=== PATIENT | female | born 1940 | race Hispanic/Latino ===

== ENCOUNTER → 2017-11-29 | Outpatient (CLI) | payer OTHER, MEDICARE | END | disposition home or self-care (01) | LOC: RAH 12:40 | PROVIDERS: ATTEND Family Medicine | DX: Z12.31 Encounter for screening mammogram for malignant neoplasm of breast (principal) | CPT/HCPCS: 77067 ==

== ENCOUNTER → 2018-09-08 | Outpatient (CLI) | payer OTHER, MEDICARE ==
[~2018-09-08] MED LIST: REGADENOSON 0.4 MG/5 ML PF SYG IVP SCH
== END | disposition home or self-care (01) ==
LOC: SHCH 08:11
PROVIDERS: ATTEND Internal Medicine Cardiovascular Disease
DX: R07.9 Chest pain, unspecified (principal)
CPT/HCPCS: 78452; 93017; 96374; A9500 ×2

== ENCOUNTER → 2018-09-15 | Outpatient (CLI) | payer OTHER, MEDICARE | END | disposition home or self-care (01) | LOC: SHCH 09:20 | PROVIDERS: ATTEND Internal Medicine Cardiovascular Disease | DX: R07.9 Chest pain, unspecified (principal) | CPT/HCPCS: 93306 ==

== ENCOUNTER 2020-12-28 11:30 | Observation (INO) | payer OTHER, MEDICARE ==
[~2020-12-28] VITALS: Ht 162.6 cm; Wt 62.8 kg
[2020-12-28 11:56] LABS: BASOPHILS % (AUTO) 0.6 % (0.0-5.0); EOSINOPHILS % (AUTO) 1.1 % (0.0-8.0); HEMATOCRIT 35.6 % (36-48); LYMPHOCYTES % (AUTO) 24.7 % (21.0-51.0); MEAN CORPUSCULAR HEMOGLOBIN 30.5 pg (27.0-33.0); MEAN CORPUSCULAR HGB CONC 33.7 g/dL (32.0-36.0); MEAN CORPUSCULAR VOLUME 90.6 fL (79-99); NEUTROPHILS % (AUTO) 64.4 % (40.0-77.0); PLATELET COUNT (AUTO) 185 K/uL (130-400); RED BLOOD CELL COUNT(AUTO) 3.93 MIL/uL (4.00-5.50); RED CELL DISTRIBUTION WIDTH 13.6 % (11.0-15.5); WHITE BLOOD COUNT (AUTO) 5.2 K/uL (4.8-10.8)
[2020-12-28 12:04] LABS: CREATININE 1.7 mg/dL (0.5-1.5); POTASSIUM 4.1 mmol/L (3.5-5.1)
[2020-12-28 12:06] LABS: INR 1.04 (0.85-1.15); PROTHROMBIN TIME 11.3 SEC (9.6-11.6)
[2020-12-28 12:07] LABS: PARTIAL THROMBOPLASTIN TIME 21.1 SEC (26.3-35.5)
[2020-12-28 12:09] LABS: ALBUMIN 3.7 g/dL (3.5-5.0); BILIRUBIN,TOTAL 0.6 mg/dL (0.2-1.0); TOTAL PROTEIN, SERUM 7.5 g/dL (6.0-8.3)
[2020-12-28] MEDS ORDERED: ASPIRIN 325 MG TABLET ONE (13:07)
[2020-12-28 13:34] LABS: APPEARANCE,URINE Cloudy (CLEAR); BILIRUBIN,URINE Negative (NEGATIVE); COLOR,URINE Yellow (YELLOW); GLUCOSE, URINE (UA) Negative (NEGATIVE); KETONES,URINE Negative (NEGATIVE); LEUKOCYTE ESTERASE ,URINE Moderate (NEGATIVE); NITRATE,URINE Negative (NEGATIVE); OCCULT BLOOD,URINE Negative (NEGATIVE); PROTEIN,URINE Negative (NEGATIVE); UROBILINOGEN,URINE 0.2 mg/dL (0.2-1.0)
[2020-12-28 13:43] LABS: BACTERIA,URINE Moderate /HPF (None Seen); SQUAMOUS EPITHELIAL CELL,UR Many /HPF (0-2)
[2020-12-28] MEDS: SODIUM CHLORIDE 0.9% 1000ML 1,000 ML IV SCH (17:00)
[2020-12-28] MEDS ORDERED: ACETAMINOPHEN 650 MG SUPPOSITORY RC PRN (17:00)
[2020-12-28] MEDS ORDERED: ONDANSETRON HCL 4 MG/2 ML VIAL IVP PRN (17:00)
[2020-12-28] MEDS ORDERED: ACETAMINOPHEN 325 MG TAB PO PRN (17:00)
[2020-12-28] MEDS ORDERED: CLONIDINE HCL 0.1 MG TABLET PO PRN (17:00)
[2020-12-28] MEDS ORDERED: METHYLPREDNISOLONE SOD SUCC 125MG/2ML VIAL IVP ONE (17:00)
[2020-12-28] MEDS ORDERED: MORPHINE SULFATE 2 MG/ML 1ML SYG IVP PRN (17:00)
[2020-12-28] MEDS ORDERED: METHYLPREDNISOLONE SOD SUCC 125MG/2ML VIAL ONE (17:27)
[2020-12-28 18:21] LABS: CREATINE KINASE, TOTAL 149 U/L (21-232); MYOGLOBIN 97 ng/mL (10-92); TROPONIN I < 0.04 ng/mL (0.00-0.06)
[2020-12-28] MEDS ORDERED: CEFTRIAXONE SODIUM 1 GM ONE (20:24)
[2020-12-28] MEDS ORDERED: INSULIN HUMULIN R 100 UNIT/ML 3ML ONE (20:25)
[2020-12-28] MEDS: INSULIN HUMULIN R 100 UNIT/ML 3ML SQ SCH (21:00)
[2020-12-28] MEDS ORDERED: ENOXAPARIN SODIUM 1 MG/KG SQ SCH (21:00)
[2020-12-28] MEDS ORDERED: ENOXAPARIN SODIUM 60 MG/0.6 ML SQ SCH ×2 (21:00)
[2020-12-28 21:55] VITALS: BP 154/72
[2020-12-28 23:26] VITALS: BP 142/76
[2020-12-28 23:28] LABS: CREATINE KINASE, TOTAL 125 U/L (21-232); MYOGLOBIN 71 ng/mL (10-92); TROPONIN I < 0.04 ng/mL (0.00-0.06)
[2020-12-29 04:00] VITALS: BP 159/79
[2020-12-29 05:45] LABS: BASOPHILS % (AUTO) 0.1 % (0.0-5.0); HEMATOCRIT 35.1 % (36-48); LYMPHOCYTES % (AUTO) 11.1 % (21.0-51.0); MEAN CORPUSCULAR HEMOGLOBIN 29.4 pg (27.0-33.0); MEAN CORPUSCULAR HGB CONC 32.2 g/dL (32.0-36.0); MEAN CORPUSCULAR VOLUME 91.2 fL (79-99); NEUTROPHILS % (AUTO) 87.5 % (40.0-77.0); PLATELET COUNT (AUTO) 195 K/uL (130-400); RED BLOOD CELL COUNT(AUTO) 3.85 MIL/uL (4.00-5.50); RED CELL DISTRIBUTION WIDTH 13.6 % (11.0-15.5); WHITE BLOOD COUNT (AUTO) 6.8 K/uL (4.8-10.8)
[2020-12-29 06:10] LABS: CREATININE 1.6 mg/dL (0.5-1.5); POTASSIUM 4.6 mmol/L (3.5-5.1)
[2020-12-29] MEDS: SODIUM CHLORIDE 0.9% 1000ML 1,000 ML IV SCH (06:18)
[2020-12-29] MEDS: INSULIN HUMULIN R 100 UNIT/ML 3ML SQ SCH ×2 (06:22→12:31)
[2020-12-29 08:00] VITALS: BP 151/73
[2020-12-29] MEDS ORDERED: CEFTRIAXONE SODIUM 1 GM IVP SCH (09:00)
[2020-12-29] MEDS ORDERED: POLYETHYLENE GLYCOL 3350 17 GM POWD.PACK PO SCH (09:00)
[2020-12-29] MEDS ORDERED: PANTOPRAZOLE SODIUM 40 MG TABLET.DR PO SCH (09:00)
[2020-12-29] MEDS ORDERED: ASPIRIN 81MG TAB.CHEW PO SCH (09:00)
[2020-12-29 12:00] VITALS: BP 161/76
[2020-12-29] MEDS ORDERED: CLON0.1T PO (15:22)
[2020-12-29] MEDS ORDERED: ASPI-1197 PO (15:39)
[2020-12-29] MEDS ORDERED: INSU100I24 SQ (15:39)
[2020-12-29] MEDS ORDERED: PANT40TA54 PO (15:39)
[2020-12-29] MEDS ORDERED: PRAV40TA3 PO (15:39)
[2020-12-29] MEDS ORDERED: LOSA100T58 PO (15:39)
[2020-12-29] MEDS ORDERED: AMOX-426 PO (23:57)
== END 2020-12-29 18:05 | disposition home or self-care (01) ==
LOC: EDH 11:30 → EDHIP 16:53 → 3AH 21:39
PROVIDERS: ADMIT Internal Medicine Critical Care Medicine; ATTEND Internal Medicine Critical Care Medicine
DX: R07.89 Other chest pain (principal); N39.0 Urinary tract infection, site not specified; N17.9 Acute kidney failure, unspecified; I35.0 Nonrheumatic aortic (valve) stenosis; R01.1 Cardiac murmur, unspecified; I10 Essential (primary) hypertension; M19.90 Unspecified osteoarthritis, unspecified site; E11.9 Type 2 diabetes mellitus without complications; E78.5 Hyperlipidemia, unspecified; Z79.4 Long term (current) use of insulin; Z79.82 Long term (current) use of aspirin; Z79.899 Other long term (current) drug therapy
CPT/HCPCS: 36415 ×2; 71045; 80048; 80053; 81001; 82550 ×3; 82948 ×4; 83690; 83874 ×2; 84484 ×4; 85025 ×2; 85610; 85730; 87088; 93005; 93306; 93356; 96361; 96372 ×2; 96374; 99285; A4600; G0378 ×24; J0696 ×2; J1650; J1815 ×3; J2930; J7030

== ENCOUNTER → 2021-02-11 | Outpatient (CLI) | payer OTHER, MEDICARE ==
[~2021-02-11] MED LIST changes: +AMOX-426 PO; +ASPI-1197 PO; +CLON0.1T PO; +INSU100I24 SQ; +LOSA100T58 PO; +PANT40TA54 PO; +PRAV40TA3 PO; -REGADENOSON 0.4 MG/5 ML PF SYG IVP SCH
== END | disposition home or self-care (01) ==
LOC: SHCH 09:22
PROVIDERS: ATTEND Internal Medicine Cardiovascular Disease
DX: R07.9 Chest pain, unspecified (principal)
CPT/HCPCS: 93306; 93356

== ENCOUNTER → 2021-02-27 | Outpatient (CLI) | payer OTHER, MEDICARE ==
[~2021-02-27] VITALS: Ht 160 cm; Wt 62.1 kg
[~2021-02-27] MED LIST changes: +REGADENOSON 0.4 MG/5 ML PF SYG IVP SCH
== END | disposition home or self-care (01) ==
LOC: SHCH 08:59
PROVIDERS: ATTEND Internal Medicine Cardiovascular Disease
DX: R07.9 Chest pain, unspecified (principal)
CPT/HCPCS: 78452; 93017; 96374; A9500 ×2

== ENCOUNTER → 2023-04-14 | Outpatient (CLI) | payer OTHER, MEDICARE ==
[~2023-04-14] MED LIST changes: -AMOX-426 PO; +CHOL200013 PO; +CYAN-52 PO; +FAMO40TA7 PO; +GLIP2.5T2 PO; -LOSA100T58 PO; +LOSA100T59 PO; +MULT12TA PO; -REGADENOSON 0.4 MG/5 ML PF SYG IVP SCH
== END | disposition home or self-care (01) ==
LOC: SHCH 13:20
PROVIDERS: ATTEND Internal Medicine Cardiovascular Disease
DX: I87.2 Venous insufficiency (chronic) (peripheral) (principal); I73.9 Peripheral vascular disease, unspecified
CPT/HCPCS: 93925; 93970

== ENCOUNTER 2024-12-31 16:54 | Observation (INO) | payer OTHER, MEDICARE ==
[~2024-12-31] VITALS: Ht 162.6 cm; Wt 62.1 kg
[~2024-12-31 16:54] MED LIST changes: -GLIP2.5T2 PO; +GLIP2.5T23 PO
[2024-12-31 17:22] LABS: BASOPHILS # (AUTO) 0.03 K/uL (0.00-0.20); BASOPHILS % (AUTO) 0.5 % (0.0-5.0); EOSINOPHILS # (AUTO) 0.06 K/uL (0.00-0.70); HEMATOCRIT 37.6 % (36-48); IMMATURE GRANULOCYTE ABSOLUTE 0.02 K/uL (0-1); LYMPHOCYTES # (AUTO) 1.8 K/uL (1.0-4.8); LYMPHOCYTES % (AUTO) 28.9 % (21.0-51.0); MEAN CORPUSCULAR HEMOGLOBIN 30.3 pg (27.0-33.0); MEAN CORPUSCULAR HGB CONC 32.4 g/dL (32.0-36.0); MEAN CORPUSCULAR VOLUME 93.5 fL (79-99); MONOCYTES # (AUTO) 0.5 K/uL (0.1-1.0); MONOCYTES % (AUTO) 8.6 % (3.0-13.0); NEUTROPHILS # (AUTO) 3.7 K/uL (1.8-7.7); NEUTROPHILS % (AUTO) 60.7 % (40.0-77.0); PLATELET COUNT (AUTO) 182 K/uL (130-400); RED BLOOD CELL COUNT(AUTO) 4.02 MIL/uL (4.00-5.50); RED CELL DISTRIBUTION WIDTH 13.3 % (11.0-15.5); WHITE BLOOD COUNT (AUTO) 6.1 K/uL (4.8-10.8)
[2024-12-31 17:28] LABS: APPEARANCE,URINE CLEAR (CLEAR); BILIRUBIN,URINE NEGATIVE (NEGATIVE); COLOR,URINE YELLOW (YELLOW); GLUCOSE, URINE (UA) 250 mg/dL (NEGATIVE); KETONES,URINE NEGATIVE (NEGATIVE); LEUKOCYTE ESTERASE ,URINE SMALL Leu/uL (NEGATIVE); NITRATE,URINE NEGATIVE (NEGATIVE); OCCULT BLOOD,URINE TRACE-INTACT (NEGATIVE); PROTEIN,URINE 30 mg/dL (NEGATIVE); UROBILINOGEN,URINE 0.2 mg/dL (0.2-1.0)
[2024-12-31 17:30] LABS: ADD UA MICROSCOPIC YES
[2024-12-31 17:33] LABS: RBC,URINE 0-1 /HPF (0-1)
[2024-12-31 17:34] LABS: BACTERIA,URINE Few /HPF (None Seen); SQUAMOUS EPITHELIAL CELL,UR Few /HPF (0-2)
[2024-12-31 17:34] LABS: CREATININE 1.9 mg/dL (0.5-1.0); MAGNESIUM 1.5 mg/dL (1.80-2.40); POTASSIUM 4.5 mmol/L (3.5-5.1)
[2024-12-31 17:43] LABS: B-TYPE NATRIURETIC PEPTIDE 28 pg/mL (0-100)
--- NOTE | 2024-12-31 17:52 | HMCIMG ---
CT HEAD/BRAIN W/O CONTRAST INDICATION: dizzy, left arm numbness TECHNIQUE: CT HEAD/BRAIN W/O CONTRAST. CT was performed with one or more of the following dose reduction techniques: Automated exposure control, adjustment of the mA and/or kV according to the patient's size, or use of the iterative reconstruction technique. Comparison: None FINDINGS: Cerebral atrophy seen. Nonspecific periventricular and subcortical white matters changes are noted likely representing small vessel ischemic changes. No midline shift or herniation. No extra axial collection. No acute intracranial bleed. The visualized paranasal sinuses and mastoid air cells are normally aerated. IMPRESSION: Diffuse atrophy. No acute intracranial bleed is seen. Nonspecific white matter changes
[2024-12-31] MEDS: MAGNESIUM OXIDE 400 MG TABLET PO ONE (17:54)
[2024-12-31] MEDS: 0.9%NACL 1000ML 1,000 ML IV ONE (17:55)
--- NOTE | 2024-12-31 18:06 | HMCIMG ---
INDICATION: cp TECHNIQUE: CHEST 1VW COMPARISON: 03/10/2023 FINDINGS AND IMPRESSION: No acute consolidation or pleural effusion. Cardiac silhouette is within normal limits. Mild degenerative changes of the spine. The visualized upper abdomen appears unremarkable.
[2024-12-31] MEDS ORDERED: PoTASSium chl 10% ELIXIR 20MEQ 20 MEQ/15 ML UDCUP PO PRN (18:30)
[2024-12-31] MEDS ORDERED: PoTASSium chloRIDE 20MEQ ER 20 MEQ ERTAB PO PRN (18:30)
[2024-12-31] MEDS ORDERED: DEXTROSE 50%-WATER 50 ML DISP.SYRIN IV PRN (18:30)
[2024-12-31] MEDS ORDERED: GLUCAGON 1MG KIT 1 MG ML IM PRN (18:30)
[2024-12-31] MEDS ORDERED: ondanSETRON 4MG INJ IVP PRN (18:30)
[2024-12-31] MEDS ORDERED: LACTULOSE 20 GM/30 ML UDCUP PO PRN (18:30)
[2024-12-31] MEDS ORDERED: LAbetaLOL 20MG SYG IV PRN (18:30)
--- NOTE | 2024-12-31 18:30 | HP ---
[facility] HISTORY & PHYSICAL Date Patient Seen: Dec 31, 2024 Time of Visit: 1900 Supervising Physician: [Dr. Austin Hong] Primary Care Physician: [Dr. Maryann Stein] Outpatient Specialists: [Dr. Santhosh Rogel-cardio, Dr. Сергей Siddiqui-nephro ] Inpatient Consults: [ ] PROBLEM LIST: Persistent dizziness x 2 months with new-onset left-arm heaviness and numbness, r/o TIA vs. 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 Siddiqui in the outpatient, last time she saw him was about 2 years ago -Avoid nephrotoxic agents -IV fluids for hydration -Obtain orthostatic BP q shift -PRN Meclizine for severe dizziness -If head MRi result is significant, consider neuro consult-dayteam to follow-up pls -PT/OT to eval and treat HPI: [Patient is a 84-year-old female with PMH significant for heart murmur, HTN, HLD, DM, CKD, recurrent UTIs and possible dementia who has presented to the ED accompanied by her daughter complaining of persistent dizziness x 2 months, generalized body weakness and new-onset left posterolateral back pain, left shoulder pain, left rib/underbreast pain, left arm numbness and left arm heaviness. Patient reports 2 episodes of diarrhea and nausea yesterday, denies fever, chills, urinary symptoms, mechanical fall, or focal neurologic deficits. At the ED, she was found to be severely hyperglycemic >400 with hypomagnesemia and FABRICIO. She was given IV NS bolus, 5 units IV Regular insulin and magnesium replacement. Head CT was negative for acute intracranial processes. CXR was unremarkable. Physical assessment was unrevealing without neurologic symptoms or focal neurologic deficits. Left ribs below the breast and left posterolateral ribs were both tender on palpation without bruising, swelling or rashes. Goals of care were discussed with the patient verbalizing understanding and agreement.] PAST MEDICAL HX: see above PAST SURGICAL HX: noncontributory SOCIAL HISTORY: No tobacco, ETOH, or illicit drug use Coded Allergies: No Allergy Information Available (Verified Allergy, Unknown, 01/22/23) No Known Drug Allergies (Unverified Allergy, Unknown, 01/22/23) REVIEW OF SYSTEMS: 12 point ROS reviewed with patient. Pertinent positives mentioned above. Otherwise negative. PHYSICAL EXAM: GENERAL: alert, weak, awake oriented x 3 HEENT: EOMI, Sclera non icteric, moist mucosa NECK: Supple, no JVD, trachea midline LUNGS: Clear breath sounds bilaterally. No wheezes HEART: Regular rate and rhythm. Normal S1 and S2, with murmurs on left 3rd-4th ICS, mid-axillary and below the left nipple line ABD: Abdomen soft, nontender. Bowel sounds present EXT: No clubbing cyanosis or edema NEURO: Alert and oriented to person, follows commands Vital Signs (last 8hr) Date Time Temp Pulse Resp B/P (MAP) Pulse Ox O2 Delivery O2 Flow Rate FiO2 12/31/24 18:00 101 18 124/37 100 Room Air* 0 21 12/31/24 17:20 97.5 99 14 135/73 97 Room Air* 0 21 12/31/24 16:56 97.5 80 16 152/70 98 Room Air 0 LABS: Hematology Labs: Test 12/31/24 17:13 Range/Units White Blood Count 6.1 4.8-10.8 K/uL Red Blood Count 4.02 4.00-5.50 MIL/uL Hemoglobin 12.2 12.0-16.0 g/dL Hematocrit 37.6 36-48 % Mean Corpuscular Volume 93.5 79-99 fL Mean Corpuscular Hemoglobin 30.3 27.0-33.0 pg Mean Corpuscular Hemoglobin Concent 32.4 32.0-36.0 g/dL Red Cell Distribution Width 13.3 11.0-15.5 % Platelet Count 182 130-400 K/uL Mean Platelet Volume 12.7 H 7.5-10.5 fL Immature Granulocyte % (Auto) 0.3 0-1 % Neutrophils (%) (Auto) 60.7 40.0-77.0 % Lymphocytes (%) (Auto) 28.9 21.0-51.0 % Monocytes (%) (Auto) 8.6 3.0-13.0 % Eosinophils (%) (Auto) 1.0 0.0-8.0 % Basophils (%) (Auto) 0.5 0.0-5.0 % Neutrophils # (Auto) 3.7 1.8-7.7 K/uL Lymphocytes # (Auto) 1.8 1.0-4.8 K/uL Monocytes # (Auto) 0.5 0.1-1.0 K/uL Eosinophils # (Auto) 0.06 0.00-0.70 K/uL Basophils # (Auto) 0.03 0.00-0.20 K/uL Absolute Immature Granulocyte (auto 0.02 0-1 K/uL Nucleated Red Blood Cells 0.0 0.0-0.19 % Chemistry Labs: Test 12/31/24 17:13 Range/Units Sodium Level 135 L 136-145 mmol/L Potassium Level 4.5 3.5-5.1 mmol/L Chloride Level 100 L 101-111 mmol/L Carbon Dioxide Level 25 21-32 mmol/L Blood Urea Nitrogen 27 H 7-18 mg/dL Creatinine 1.9 H 0.5-1.0 mg/dL Glomerular Filtration Rate Calc 26 >90 mL/min Random Glucose 422 *H 70-105 mg/dL Total Calcium 8.0 L 8.5-10.1 mg/dL Magnesium Level 1.50 L 1.80-2.40 mg/dL Total Creatine Kinase 64 # 21-232 U/L Troponin I High Sensitivity 6 4-50 ng/L B-Type Natriuretic Peptide 28 0-100 pg/mL DIAGNOSTICS / RADIOLOGY RESULTS: [ ] PLAN NEURO: Minimize central acting medications as possible. Maintain fall precautions, adequate lighting during the day PULMONARY: Supplemental 02 as needed. Maintain aspiration precautions at all times CARDIOVASCULAR: Follow hemodynamics. Vital signs per facility protocol GI & NUTRITION: Continue with nutritional support. Continue stool softeners and laxatives as needed. KIDNEYS & ELECTROLYTES: Strict monitoring of intake, output and overall fluid balance. Avoid nephrotoxic medications to the extent possible. Medications to be dosed according to renal function. Monitor electrolytes and replace as needed ENDOCRINE: Maintain blood glucose between 100-180 at all times. Hypoglycemia protocol in place INFECTIOUS DISEASE: Trend temperature, WBC and procalcitonin level Follow cultures, deescalate antibiotics as soon as possible. Panculture if new onset fever ONCOLOGY/HEMATOLOGY/COAGULATION: Monitor for s/s of bleeding Monitor hemoglobin, coagulation studies as needed SKIN: Pressure ulcer prevention per facility protocol Specialty mattress ORTHO/REHAB: Continue PT/OT Prophylaxis: Continue GI and DVT prophylaxis Code Status: Full Resuscitation Disposition: TBD Other: Total patient care time: 35 minutes VICK GUTHRIE Dec 31, 2024 18:30
--- NOTE | 2024-12-31 18:45 | ERN ---
General Chief Complaint: Dizzy/Light Headed Stated Complaint: DIZZINESS, FATIGUE Time Seen by MD: 17:00 Time Seen by Midlevel: 17:00 History of Present Illness Initial Comments Patient is an 84-year-old female with a past medical history of type 2 diabetes, hypertension, and hyperlipidemia presenting to the emergency department for evaluation of increased generalized body weakness. She reports intermittent episodes of dizziness that has been ongoing for the last two months. Allergies: Coded Allergies: No Allergy Information Available (Verified Allergy, Unknown, 01/22/23) No Known Drug Allergies (Unverified Allergy, Unknown, 01/22/23) Home Meds Active Scripts Sulfamethoxazole/Trimethoprim (Bactrim 400-80 mg Tablet) 400 Mg-80 Mg Tablet, 1 TAB PO BID for 5 Days, #10 TAB 0 Refills Prov:ZAC ENG 01/02/25 Reported Medications Mirtazapine (Mirtazapine) 7.5 Mg Tablet, 1 TAB PO HS for 30 Days, #30 TAB 0 Refills 01/01/25 Citalopram Hydrobromide (Citalopram HBr) 10 Mg Tablet, 1 TAB PO DAILY for 30 Days, #30 TAB 0 Refills 01/01/25 Glipizide (Glipizide ER) 10 Mg Tab.er.24, 1 TAB PO DAILY for 30 Days, #30 TAB 0 Refills 01/01/25 Donepezil HCl (Donepezil HCl) 10 Mg Tab.rapdis, 1 TAB PO DAILY for 30 Days, #30 TAB 0 Refills 01/01/25 Multivit-Minerals/Folic Acid (Centrum Adults Multigummy) 12 Mcg Tab.chew, 12 MCG PO DAILY, TAB.CHEW 03/10/23 Famotidine (Famotidine) 40 Mg Tablet, 40 MG PO DAILY, TAB 03/10/23 Cholecalciferol (Vitamin D3) (Vitamin D3) 50 Mcg Capsule, 50 MCG PO DAILY, CAP 03/10/23 Cyanocobalamin (Vitamin B-12) (Vitamin B-12) 1,000 Mcg Tablet, 1000 MCG PO DAILY, TAB 03/10/23 Pravastatin Sodium (Pravastatin Sodium) 40 Mg Tablet, 40 MG PO HS, TAB 12/29/20 Losartan Potassium (Losartan Potassium) 100 Mg Tablet, 100 MG PO DAILY, TAB 12/29/20 Insulin Degludec (Tresiba Flextouch U-100) 100 Unit/1 Ml Insuln.pen, 42 UNIT SQ DAILY, SYRINGE 12/29/20 Discontinued Reported Medications Glipizide (Glipizide ER) 2.5 Mg Tab.er.24, 2.5 MG PO DAILY 03/10/23 Aspirin (Aspirin) 81 Mg Tab.chew, 81 MG PO AM, TAB.CHEW 12/29/20 Pantoprazole Sodium (Pantoprazole Sodium) 40 Mg Tablet.dr, 40 MG PO DAILY, TAB 12/29/20 Discontinued Scripts Clonidine HCl (Clonidine HCl) 0.1 Mg Tablet, 0.1 MG PO Q6HPRN PRN for IF SBP GREATER THAN 170 for 30 Days, #60 TAB Prov:CHLOE CASTANEDA LUIS 12/29/20 Past Medical History Past Medical History: Diabetes-Type II, High Cholesterol, Hypertension Past Surgical History: Unknown ROS Dictation CONSTITUTIONAL: Negative except for HPI HEAD/FACE: Negative except for HPI EENT: Negative except for HPI RESPIRATORY: Negative except for HPI GASTROINTESTINAL/ABDOMINAL: Negative except for HPI GENITOURINARY: Negative except for HPI MUSCULOSKELETAL: Negative except for HPI INTEGUMENTARY: Negative except for HPI NEUROLOGICAL/PSYCH: Negative except for HPI HEMATOLOGIC/LYMPHATIC: Negative except for HPI All Systems Negative, Except as noted above. 13 point review of systems assessed and all negative except for above. Physical Exam Physical Exam Dictation Vital Signs reviewed General Appearance: Alert, oriented x 3, no acute distress, well developed, nourished. Head and Face: non-traumatic. Eyes: PERRL, pink conjunctivas, eyelid no trauma, anterior chamber with arcus s enilis. Ears: Pinnas intact and no signs of trauma or erythema ear canals clear and no discharge TM no erythema Nose: No discharge, no bleeding. Oropharynx: Mouth normal, tongue pink, pharynx clear,no erythema, tonsils no exudates, no abscesses noted, mucous membrane moist Neck: Supple, non-tender, no thyromegaly, no masses, no JVD, no bruits Breast:Deferred Chest:No tenderness, no crepitus, no paradoxical movement, no retractions Lungs:Clear, well-ventilated, symmetric, no rales, no wheezing, no rhonchi, no stridor, good breath sounds bilaterally Heart: Regular rate, regular rhythm, no murmur, no gallops Vascular: no peripheral edema, Abdomen: Soft, positive bowel sounds, nondistended, no guarding, nontender, no rebound, no masses no hepatomegaly, no splenomegaly, no Owen's sign, no hernias. Rectal: Deferred Genital: Deferred Neurological: Normal speech, motor function intact, sensory function intact Musculoskeletal: Neck nontender, full range of motion, back nontender, full range of motion, Extremities: nontender, full range of motion Skin: Color pink, dry, no turgor, no rash, no lacerations, no abrasions, no contusions. Lymphatic: Deferred Results Laboratory and Microbiology Lab and Micro Result MDM MDM: Differential diagnosis: Dehydration, chronic renal failure, electrolyte abnormality Rationale: Tests considered and ordered secondary to shared decision making include: Previous outside records reviewed: Old ER visits. Risk of complication and/or morbidity or mortality of patient management: None Medications-Per medication reconciliation Need for hospitalization: Patient does meet criteria for hospitalization. Need for emergency major/minor surgery: No There are no social concerns with this patient. Prescription drug management Prescriptions will include symptomatic care Patient's prior external medical records from other ER visits were reviewed by me as indicated. Prior testing and results from previous visits were reviewed. Prior tests were taken into account with medical decision making and resource utilization, independent historian/historians were used to obtain complete medical history. I independently interpreted the test that were performed, results were reviewed by me and considered findings on radiology if ordered. Medical management and examination interpretation discussions were had by me with other qualified healthcare professionals as indicated for the patient's care. ED Course [address] [id number] IMAGING REPORT Signed PATIENT: LAYLA RUCKER MR#: [id number] : 1940 SEX: F AGE: 84 LOCATION: EDH ORDER 03 STATUS: [facility] ER REPORT#: [id number] SERVICE 02 REASON: dizzy, left arm numbness ORDERING PHYSICIAN: LEANN ROSAS PROCEDURE: HEAD WO - CT HEAD/BRAIN W/O CONTRAST CT HEAD/BRAIN W/O CONTRAST INDICATION: dizzy, left arm numbness TECHNIQUE: CT HEAD/BRAIN W/O CONTRAST. CT was performed with one or more of the following dose reduction techniques: Automated exposure control, adjustment of the mA and/or kV according to the patient's size, or use of the iterative reconstruction technique. Comparison: None FINDINGS: Cerebral atrophy seen. Nonspecific periventricular and subcortical white matters changes are noted likely representing small vessel ischemic changes. No midline shift or herniation. No extra axial collection. No acute intracranial bleed. The visualized paranasal sinuses and mastoid air cells are normally aerated. IMPRESSION: Diffuse atrophy. No acute intracranial bleed is seen. Nonspecific white matter changes DICTATED BY: BLANCA GOMEZ MD DATE: 12/31/241746 ELECTRONICALLY SIGNED BY: BLANCA GOMEZ MD DATE: 12/31/241751 [address] [address] IMAGING REPORT Signed PATIENT: LAYLA RUCKER MR#: [id number] : 1940 SEX: F AGE: 84 LOCATION: ED ORDER 03 STATUS: [facility] REPORT#: [id number] SERVICE 02 REASON: cp ORDERING PHYSICIAN: LEANN ROSAS PROCEDURE: CXR1VW - CHEST 1VW INDICATION: cp TECHNIQUE: CHEST 1VW COMPARISON: 03/10/2023 FINDINGS AND IMPRESSION: No acute consolidation or pleural effusion. Cardiac silhouette is within normal limits. Mild degenerative changes of the spine. The visualized upper abdomen appears unremarkable. DICTATED BY: BLANCA GOMEZ MD DATE: 12/31/241802 ELECTRONICALLY SIGNED BY: BLANCA GOMEZ MD DATE: 12/31/241805 DX & DISP Disposition: Inpatient Departure Impression: Primary Impression: FABRICIO (acute kidney injury) Additional Impressions: Failure to thrive, UTI (urinary tract infection) Condition: Stable Scripts Sulfamethoxazole/Trimethoprim (Bactrim 400-80 mg Tablet) 400 Mg-80 Mg Tablet 1 TAB PO BID for 5 Days, #10 TAB 0 Refills Prov: ZAC ENG 01/02/25 Referrals: VLAD GREEN MD (PCP) I have reviewed the case, and I agree with, Diagnosis and Plan I performed the substantive portion of the visit. I have reviewed and personally made and approve the management plan that is documented in the note by myself or the VY. I acknowledge for responsibility for the patient's management plan. LEANN ROSAS Dec 31, 2024 18:45
[2024-12-31] MEDS: INSULIN humuLIN R 100 UNIT/ML 3ML IV ONE (18:49)
[2024-12-31] MEDS: LACTATED RINGERS 1000ML 1,000 ML IV SCH (18:53)
--- NOTE | 2024-12-31 20:09 | HMCIMG ---
US RENAL SONOGRAM HISTORY: medical renal disease TECHNIQUE: US RENAL SONOGRAM. FINDINGS: RIGHT KIDNEY: The right kidney measures 8.9cm. No hydronephrosis or renal calculus seen. LEFT KIDNEY: The left kidney measures 9.1cm. No hydronephrosis or renal calculus seen. The visualized urinary bladder is within normal limits. Distended urinary bladder. IMPRESSION: No hydronephrosis is seen. Distended urinary bladder.
--- NOTE | 2024-12-31 20:46 | HMCIMG ---
RIBS UNILAT 2V LT HISTORY: left rib pain and tenderness TECHNIQUE: RIBS UNILAT 2V LT FINDINGS AND IMPRESSION: No evidence of displaced rib fracture. Clinical correlation is recommended. No acute pulmonary consolidation pleural effusion. Diffuse osteopenia is seen degrading evaluation of the study.
[2024-12-31] MEDS: INSULIN humuLIN R 100 UNIT/ML 3ML SQ SCH (21:00)
[2024-12-31] MEDS: atorVAStatin 20 MG TABLET PO SCH (21:23)
[2024-12-31] MEDS: LIDOCAINE 4% ADH..PATCH TP SCH (21:23)
[2024-12-31] MEDS: ASPIRIN 81MG CHEW TAB PO SCH (21:23)
[2024-12-31 22:43] LABS: CREATININE 1.7 mg/dL (0.5-1.0); MAGNESIUM 1.6 mg/dL (1.80-2.40); POTASSIUM 4.4 mmol/L (3.5-5.1)
--- NOTE | 2024-12-31 23:33 | NUR ---
REPORT GIVEN TO FLAKITO CID FOR ROOM 419. 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 PT IS A&OX3, GCS15, NO SIGNS OF ACUTE DISTRESS NOTED, VSS. RESP EVEN AND UNLABORED ON RA. DAUGHTER AT BEDSIDE. ALL PT BELONGINGS SENT WITH PT AT TIME OF DEPARTURE.
[2024-12-31 23:45] VITALS: BP 153/81; PULSE 68; RESP 18; TEMP 97.4; O2SAT 98
[2025-01-01] VITALS (8 sets, daily range): BP systolic 138–186; BP diastolic 69–77; PULSE 71–79; RESP 16–19; TEMP 97.6–98.6; O2SAT 100
[2025-01-01] MEDS: MAGNESIUM 2GM PREMIX 50ML 50 ML IV PRN (00:19)
[2025-01-01] MEDS ORDERED: mecliZINE HCL 12.5 MG TABLET PO PRN (02:00)
[2025-01-01 05:20] LABS: BASOPHILS # (AUTO) 0.02 K/uL (0.00-0.20); BASOPHILS % (AUTO) 0.3 % (0.0-5.0); EOSINOPHILS # (AUTO) 0.07 K/uL (0.00-0.70); EOSINOPHILS % (AUTO) 1.1 % (0.0-8.0); HEMATOCRIT 35.1 % (36-48); IMMATURE GRANULOCYTE ABSOLUTE 0.01 K/uL (0-1); LYMPHOCYTES # (AUTO) 2.3 K/uL (1.0-4.8); LYMPHOCYTES % (AUTO) 36.6 % (21.0-51.0); MEAN CORPUSCULAR HEMOGLOBIN 30.9 pg (27.0-33.0); MEAN CORPUSCULAR HGB CONC 32.5 g/dL (32.0-36.0); MEAN CORPUSCULAR VOLUME 95.1 fL (79-99); MONOCYTES # (AUTO) 0.6 K/uL (0.1-1.0); MONOCYTES % (AUTO) 9.4 % (3.0-13.0); NEUTROPHILS # (AUTO) 3.2 K/uL (1.8-7.7); NEUTROPHILS % (AUTO) 52.4 % (40.0-77.0); PLATELET COUNT (AUTO) 161 K/uL (130-400); RED BLOOD CELL COUNT(AUTO) 3.69 MIL/uL (4.00-5.50); RED CELL DISTRIBUTION WIDTH 13.4 % (11.0-15.5); WHITE BLOOD COUNT (AUTO) 6.2 K/uL (4.8-10.8)
[2025-01-01 05:46] LABS: HEMOGLOBIN A1C 10.3 % (4.0-6.0)
[2025-01-01 05:52] LABS: CREATININE 1.7 mg/dL (0.5-1.0); MAGNESIUM 2.7 mg/dL (1.80-2.40); PHOSPHORUS 2.7 mg/dL (2.5-4.9); POTASSIUM 4.7 mmol/L (3.5-5.1); THYROID STIMULATING HORMONE 3.02 uIU/mL (0.36-3.74)
[2025-01-01] MEDS ORDERED: MIRT7.5T11 PO (06:21)
[2025-01-01] MEDS ORDERED: DONE-53 PO (06:21)
[2025-01-01] MEDS ORDERED: CITA10TA89 PO (06:21)
[2025-01-01] MEDS ORDERED: GLIP-302 PO (06:21)
--- NOTE | 2025-01-01 08:05 | EKG ---
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
[2025-01-01] MEDS: ENOXAPARIN SODIUM 30 MG/0.3 ML SQ SCH (08:58)
[2025-01-01] MEDS: acetaMINOPHEN 325 MG TAB PO PRN (08:58)
[2025-01-01] MEDS: PANTOPrazole 40 MG TAB DR PO SCH (08:59)
--- NOTE | 2025-01-01 10:26 | NUR ---
The patient was unable to complete the MRI Brain WO exam. The patient experienced sob and chest pain after being introduced to the bore. After this the pt decided to retire. Upon removal of the patient from the bore the patient appeared to return to normal. PT returned to room.
[2025-01-01] MEDS: CEFTRIAXONE 2GM VIAL IVPB SCH (11:22)
--- NOTE | 2025-01-01 11:53 | NUR ---
BLADDER SCAN BLADDER SCANNED PATIENT ORDERED BY SUPERVISOR CAB, FRANCIA BOONE. PER SCAN, PATIENT SHOWED MAX OF >33ML. PATIENT TOLERATED PROCEDURE WELL. REPORTS HAS BEEN VOIDING THROUGHOUT THE MORNING WITH NO COMPLICATIONS. DENIES ANY PAIN OR BURNING DURING URINATION. FINDINGS REPORTED TO PROVIDER. NO FURTHER ORDERS GIVEN.
--- NOTE | 2025-01-01 12:16 | NUR ---
[facility] Patient is going to radiology for CT Scan, patient states Floyd Leija, Daughter [phone] can complete the interview. Floyd Leija, Daughter [phone] state patient lives with her, brother and daughter in law in a duplex apartment on the first floor with a tub. Receives "a little more than $100" in food assistance. 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 States patient is able to complete ADL's on her own. Denies medical devices. Denies home helth services, home care provider or dialysis. PCP - Maryann Stein MD Pharmacy - [address] Upon discharge, states Floyd Leija, Daughter [phone] and assist with care, as needed. Requests handicap tub handles/bars and bed rails to assist patient out of bed; referred to PCP for prescription. Addendum: 01/01/25 at 1223 by FLOYD CASTREJON RN CM Amended: Links added.
--- NOTE | 2025-01-01 13:02 | NUR ---
HEAD MRI 1100 ORDERS FOR HEAD MRI IN PLACE. PATIENT WAS TAKEN DOWN TO RADIOLOGY DEPT TODAY AT APPROXIMATELY 1030AM, HOWEVER PATIENT DID NOT TOLERATE PROCEDURE DUE TO FEELING VERY ANXIOUS AND CLAUSTROPHOBIC. PATIENT WAS RETURNED TO UNIT. NO MRI TAKEN. 1220 FINDINGS REPORTED TO PROVIDER, FRANCIA BOONE AND GAVE VERBAL ORDER FOR ATIVAN 0.5MG IV X 1 DOSE PRIOR TO PROCEDURE TO HELP WITH ANXIETY. ORDERS PLACED. 1240 EDUCATED PATIENT ON PROVIDER'S RECOMMENDATIONS TO PROCEED WITH MRI. PATIENT REFUSED, STATING DOES NOT NEED PROCEDURE AND DOES NOT WANT ANY MEDICATIONS TO CALM DOWN. STATED WILL TAKE ANTIBIOTICS, BUT NOTHING TO "CALM DOWN". DAUGHTER AT BEDSIDE AND ATTEMPTED TO EXPLAIN ON WHAT PROCEDURE ENTAILED AND WHY SHE'S NEEDING MEDICATION TO RELAX. PATIENT CONTINUED TO REFUSE. 1250 FINDINGS REPORTED TO PROVIDER. ACKNOWLEDGED. REFUSAL FORM SIGNED FOR MRI, DAUGHTER AT BEDSIDE. FILED IN PATIENT'S CHART. NO NEW ORDERS GIVEN. WILL CONTINUE TO MONITOR.
[2025-01-01] MEDS: LORazepam 2 MG/ML 1 ML VIAL IVP ONE (13:25)
--- NOTE | 2025-01-01 15:01 | PN ---
[facility] PROGRESS NOTE Date Patient Seen: Jan 01, 2025 Time of Visit: 1225 Supervising Physician: Dr. Hong Primary Care Physician: [Dr. Maryann Stein] Outpatient Specialists: [Dr. Santhosh Rogel-cardio, Dr. Сергей Siddiqui-nephro ] Inpatient Consults: [ ] PROBLEM LIST: Acute complicated cystitis urine culture positive Gram-negative rods Persistent dizziness x 2 months with new-onset left-arm heaviness and numbness, r/o TIA vs. 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 Siddiqui in the outpatient, last time she saw him was about 2 years ago -Avoid nephrotoxic agents -IV fluids for hydration -Obtain orthostatic BP q shift -PRN Meclizine for severe dizziness -If head MRi result is significant, consider neuro consult-dayteam to follow-up pls -PT/OT to eval and treat INTERVAL HISTORY: 01/01 patient was seen and examined at bedside with daughter present. Patient is awake alert able to answer simple questions appropriately. Patient denies any chest pain or shortness of breadth. Denies any nausea vomiting or abdominal pain. At time of visit patient appears to have no neuro deficits. Patient is refusing MRI at this time. Patient's urine culture positive for Gram-negative rods we will start patient on Rocephin2 g daily and follow up with sensitivity report. Patient's CT head unremarkable patient's renal ultrasound reports distended bladder, bladder scan was obtain patient only holding 30 mL of urine at this time. Patient to continue on aspirin statin. We will follow up with echocardiogram. REVIEW OF SYSTEMS: 12 point ROS reviewed with patient. Pertinent positives mentioned above. Otherwise negative. PHYSICAL EXAM: GENERAL: alert, weak, awake oriented x 3 HEENT: EOMI, Sclera non icteric, moist mucosa NECK: Supple, no JVD, trachea midline LUNGS: Clear breath sounds bilaterally. No wheezes HEART: Regular rate and rhythm. Normal S1 and S2, with murmurs on left 3rd-4th ICS, mid-axillary and below the left nipple line ABD: Abdomen soft, nontender. Bowel sounds present EXT: No clubbing cyanosis or edema NEURO: Alert and oriented to person, follows commands Vital Signs (last 8hr) Date Time Temp Pulse Resp B/P (MAP) Pulse Ox O2 Delivery O2 Flow Rate FiO2 01/01/25 11:46 98.2 72 16 138/72 100 Room Air 01/01/25 08:45 100 Room Air* 0 21 01/01/25 07:52 98.1 71 18 175/75 100 Room Air LABS: Hematology Labs: Test 01/01/25 05:03 Range/Units White Blood Count 6.2 4.8-10.8 K/uL Red Blood Count 3.69 L 4.00-5.50 MIL/uL Hemoglobin 11.4 L 12.0-16.0 g/dL Hematocrit 35.1 L 36-48 % Mean Corpuscular Volume 95.1 79-99 fL Mean Corpuscular Hemoglobin 30.9 27.0-33.0 pg Mean Corpuscular Hemoglobin Concent 32.5 32.0-36.0 g/dL Red Cell Distribution Width 13.4 11.0-15.5 % Platelet Count 161 130-400 K/uL Mean Platelet Volume 12.5 H 7.5-10.5 fL Immature Granulocyte % (Auto) 0.2 0-1 % Neutrophils (%) (Auto) 52.4 40.0-77.0 % Lymphocytes (%) (Auto) 36.6 21.0-51.0 % Monocytes (%) (Auto) 9.4 3.0-13.0 % Eosinophils (%) (Auto) 1.1 0.0-8.0 % Basophils (%) (Auto) 0.3 0.0-5.0 % Neutrophils # (Auto) 3.2 1.8-7.7 K/uL Lymphocytes # (Auto) 2.3 1.0-4.8 K/uL Monocytes # (Auto) 0.6 0.1-1.0 K/uL Eosinophils # (Auto) 0.07 0.00-0.70 K/uL Basophils # (Auto) 0.02 0.00-0.20 K/uL Absolute Immature Granulocyte (auto 0.01 0-1 K/uL Nucleated Red Blood Cells 0.0 0.0-0.19 % Chemistry Labs: Test 01/01/25 10:30 01/01/25 05:03 12/31/24 22:09 12/31/24 17:13 Range/Units Whole Blood Glucose 89 # 70-110 MG/DL Sodium Level 138 136-145 mmol/L Potassium Level 4.7 3.5-5.1 mmol/L Chloride Level 107 101-111 mmol/L Carbon Dioxide Level 25 21-32 mmol/L Blood Urea Nitrogen 26 H 7-18 mg/dL Creatinine 1.7 H 0.5-1.0 mg/dL Glomerular Filtration Rate Calc 30 >90 mL/min Random Glucose 284 #H 70-105 mg/dL Hemoglobin A1c 10.3 H 4.0-6.0 % Estimated Average Glucose (eAG) 249 H 70-126 mg/dL Total Calcium 7.8 L 8.5-10.1 mg/dL Phosphorus Level 2.7 2.5-4.9 mg/dL Magnesium Level 2.70 H 1.80-2.40 mg/dL Triglycerides Level 174 30-200 mg/dL Cholesterol Level 136 <200 mg/dL LDL Cholesterol 87 0-99 mg/dL HDL Cholesterol 27 L 35-85 mg/dL Thyroid Stimulating Hormone (TSH) 3.02 # 0.36-3.74 uIU/mL Whole Blood Ketones Quantitative 0.1 0.0-0.6 mmol/L Total Creatine Kinase 64 # 21-232 U/L Troponin I High Sensitivity 6 4-50 ng/L B-Type Natriuretic Peptide 28 0-100 pg/mL DIAGNOSTICS / RADIOLOGY RESULTS: na PLAN Start Rocephin2 g daily Follow up with the urine culture currently positive for Gram-negative rods Patient refusing MRI Follow up with echocardiogram Continue [id number] mg daily Continue atorvastatin 40 mg q.h.s. Continue PT and OT NEURO: Minimize central acting medications as possible. Maintain fall precautions, adequate lighting during the day PULMONARY: Supplemental 02 as needed. Maintain aspiration precautions at all times CARDIOVASCULAR: Follow hemodynamics. Vital signs per facility protocol GI & NUTRITION: Continue with nutritional support. Continue stool softeners and laxatives as needed. KIDNEYS & ELECTROLYTES: Strict monitoring of intake, output and overall fluid balance. Avoid nephrotoxic medications to the extent possible. Medications to be dosed according to renal function. Monitor electrolytes and replace as needed ENDOCRINE: Maintain blood glucose between 100-180 at all times. Hypoglycemia protocol in place INFECTIOUS DISEASE: Trend temperature, WBC and procalcitonin level Follow cultures, deescalate antibiotics as soon as possible. Panculture if new onset fever ONCOLOGY/HEMATOLOGY/COAGULATION: Monitor for s/s of bleeding Monitor hemoglobin, coagulation studies as needed SKIN: Pressure ulcer prevention per facility protocol Specialty mattress ORTHO/REHAB: Continue PT/OT Prophylaxis: Continue GI and DVT prophylaxis Code Status: Full Resuscitation Disposition: TBD Other: Case discussed with supervising physician plan of care agreed upon FRANCIA BOONE Jan 01, 2025 15:01
--- NOTE | 2025-01-01 15:44 | NUR ---
POWER OF INTAKE CLINICIAN SON, ANUSHKA RUCKER, REQUESTING INFORMATION REGARDING POWER OF INTAKE CLINICIAN. STATED PATIENT'S MENTAL HEALTH IS INCREASINGLY WORSENING AND IS CONCERNED DUE TO HER REFUSING EXAMS AND OR MEDICATIONS. MR. RUCKER STATED WILL SPEAK WITH SISTER AND COME TO AN AGREEMENT REGARDING WHO WILL TAKE POA STATUS, REQUESTING CENTRAL OFFICE TROUBLE SHOOTER FOR ASSISTANCE. NOTIFIED PRIMARY, ORDERS PLACED FOR CENTRAL OFFICE TROUBLE SHOOTER. WILL CARRY OUT.
[2025-01-01] MEDS ORDERED: NON-FORMULARY MEDICATION 1 EACH (Pravastatin Sodium 40 MG) PO SCH (21:00)
[2025-01-01] MEDS: mirtAZAPine 15 MG TABLET PO SCH (21:17)
[2025-01-02] VITALS (7 sets, daily range): BP systolic 126–190; BP diastolic 53–76; PULSE 78–98; RESP 17–18; TEMP 97.5–98.7; O2SAT 100
--- NOTE | 2025-01-02 00:34 | HMCSR ---
APPROVED REPORT EXAM: Two-dimensional and M-mode echocardiogram with Doppler and color Doppler. INDICATION ICD: CVA/TIA: 2D Dimensions RVDd3.4 cmLVEF(%)75.0 (>50%)LVED Vol(simp.)49.5 mL IVSd0.9 (0.7-1.1cm)FS(%)43 %LVES Vol(simp.)20.8 mL LVDd3.3 (3.8-5.6cm)LA (2D)3.3 (1.6-4.0cm)LVEF(%, simp.)58 % PWd1.0 (0.7-1.1cm)Ao Root(2D)2.7 (2.0-3.7cm)LA ESV INDEX (BP)23.71 mL/m2 LVDs1.9 (2.5-4.0cm)LVOT diam1.8 (1.8-2.4cm) IVC diam1.3 cm Deformation Strain Apical 4-18.0 % Apical 2-14.0 % Apical 3-13.0 % Global Strain-15.0 % M-Mode Dimensions EPSS0.9 cm LA (MM)3.8 (1.6-4.0cm) Ao Root(MM)2.4 (2.0-3.7cm) Aortic Valve AoV Vmax0.0 m/Cl Peak GR0.0 mmHgLVOT Vmax0.9 m/s AoV VTI0.6 mAo Mean GR19.6 mmHgLVOT VTI0.22 m DARLIN (VMAX)0.8 cm2AVA (VTI) 0.8 cm2 Mitral Valve MV E Vmax90.2 cm/sDECEL [id number] ms MV A Hgcp009.4 cm/sP 1/2 T74 ms E/A ratio0.7MVA (PHT)3.0 cm2 TDI E/E' [id number] Medial E' Peak V5.00 cm/s Tricuspid Valve TR Vmax3.0 m/sRVSP36.4 mmHg TR Peak GR36.8 mmHg Left Ventricle The left ventricle is normal in size. No regional wall motion abnormalities noted. Mild concentric le ft ventricular hypertrophy. Left ventricular systolic function is normal, estimated LVEF is 55 to 60% . Stage I diastolic dysfunction. Right Ventricle The right ventricle is normal size. The right ventricular systolic function is normal. Atria The left atrium size is normal. The right atrium size is normal. Aortic Valve Aortic valve is trileaflet. The leaflets are thickened and calcified. Trace aortic regurgitation. Mod erate aortic stenosis, peak velocity 3.0 m/s, mean gradient 24 mmHg. Mitral Valve Mild mitral annular calcification is noted. The leaflets are mildly thickened and calcified. Trace mi tral regurgitation.. There is no mitral valve stenosis. Tricuspid Valve The tricuspid valve is normal in structure and function. Moderate tricuspid regurgitation. RVSP is 37 mmHg. Pulmonic Valve Pulmonic valve is not well visualized. Great Vessels The aortic root is normal in size. The IVC is normal in size and collapses >50% with inspiration. Pericardium No pericardial effusion. Conclusion Mild concentric left ventricular hypertrophy. No regional wall motion abnormalities noted. Left ventricular systolic function is normal, estimated LVEF is 55 to 60%. Stage I diastolic dysfunction. Moderate aortic stenosis, peak velocity 3.0 m/s, mean gradient 24 mmHg. Trace aortic regurgitation. Trace mitral regurgitation.. Moderate tricuspid regurgitation. PASP is 40 mmHg. No pericardial effusion.
[2025-01-02] MEDS: doNEPEZil HCL 5 MG TAB PO SCH (08:52)
[2025-01-02] MEDS: amLODIPine 5 MG TAB PO SCH (08:52)
[2025-01-02] MEDS: CYANOCOBALAMIN (VITAMIN B-12) 1,000 MCG TABLET PO SCH (08:52)
[2025-01-02] MEDS: citaLOPram 20 MG TABLET PO SCH (08:53)
[2025-01-02] MEDS: MULTIVIT MINERALS PO SCH (09:00)
[2025-01-02] MEDS: FOLIC ACID PO SCH (09:00)
[2025-01-02] MEDS: (Cholecalciferol (Vitamin D3) (Vitamin D3) 50 MCG) PO SCH (09:00)
[2025-01-02] MEDS ORDERED: NON-FORMULARY MEDICATION 1 EACH (Famotidine 40 MG) PO SCH (09:00)
--- NOTE | 2025-01-02 09:22 | NUR ---
SS REFERRAL- DIRECTIVES SW met with pt and family at bedside. Sons not present. SW educated both on MPOA, Directives and OOHDNR. Pt voiced understanding and she has always wanted to do this and just never got around to it. Pt voiced that she would not want resuscitation, or to be kept alive on machines if she was terminal or irreversible. Pt wants to discuss her wishes with her sons and decide who she would want to be MPOA. Pt to notify nurse if she wishes to complete this admission
[2025-01-02 11:01] LABS: CHLORIDE,URINE RANDOM 106 mmol/L (110-250); POTASSIUM,URINE RANDOM 12 mmol/L (25-125); SODIUM,URINE RANDOM 99 mmol/l (40-220)
[2025-01-02] MEDS: hydrALAZine 20MG/ML VIAL IV PRN (11:16)
--- NOTE | 2025-01-02 16:49 | HMCIMG ---
US CAROTID DUPLEX HISTORY: Dizziness COMPARISON: None TECHNIQUE: Duplex carotid arterial Doppler ultrasound study was performed. FINDINGS: The common, internal and external carotid arteries are visualized. The peak systolic velocities of right common carotid artery is 98 centimeters per second, right internal carotid artery is 173 centimeters per second, right external carotid artery is 241 centimeters per second, and right vertebral artery is 107 centimeters per second. Right internal carotid artery to right common carotid artery ratio is 1.8. Right vertebral artery is seen with antegrade flow. The peak systolic velocities of left common carotid artery is 108 centimeters per second, left internal carotid artery is 99 centimeters per second, left external carotid artery is 152 centimeters per second, and left vertebral artery is 75 centimeters per second. Left internal carotid artery to left common carotid artery ratio is 0.92. Left vertebral artery is seen with antegrade flow. There are bilateral echogenic plaques. IMPRESSION: 1. There is 50-69% stenosis of right internal carotid artery. No hemodynamically significant lesion is seen of left extracranial carotid artery system.
[2025-01-02] MEDS ORDERED: SULF1TAB41 PO (19:10)
--- NOTE | 2025-01-02 19:11 | DS ---
[facility] DISCHARGE SUMMARY Date Patient Seen: Jan 02, 2025 Time of Visit: 19:11 Supervising Physician: [Dr. Hurtado] Primary Care Physician: [Dr. Maryann Stein] Outpatient Specialists: [Dr. Santhosh Rogel-cardio, Dr. 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 Rogel for monitoring of aortic stenosis HOSPITAL COURSE: HPI (per admitting provider) Patient is a 84-year-old female with PMH significant for heart murmur, HTN, HLD, DM, CKD, recurrent UTIs and possible dementia who has presented to the ED accompanied by her daughter complaining of persistent dizziness x 2 months, generalized body weakness and new-onset left posterolateral back pain, left shoulder pain, left rib/underbreast pain, left arm numbness and left arm heaviness. Patient reports 2 episodes of diarrhea and nausea yesterday, denies fever, chills, urinary symptoms, mechanical fall, or focal neurologic deficits. At the ED, she was found to be severely hyperglycemic >400 with hypomagnesemia and FABRICIO. She was given IV NS bolus, 5 units IV Regular insulin and magnesium replacement. Head CT was negative for acute intracranial processes. CXR was unremarkable. Physical assessment was unrevealing without neurologic symptoms or focal neurologic deficits. Left ribs below the breast and left posterolateral ribs were both tender on palpation without bruising, swelling or rashes. Goals of care were discussed with the patient verbalizing understanding and agreement... 01/01 patient was seen and examined at bedside with daughter present. Patient is awake alert able to answer simple questions appropriately. Patient denies any chest pain or shortness of breadth. Denies any nausea vomiting or abdominal pain. At time of visit patient appears to have no neuro deficits. Patient is refusing MRI at this time. Patient's urine culture positive for Gram-negative rods we will start patient on Rocephin2 g daily and follow up with sensitivity report. Patient's CT head unremarkable patient's renal ultrasound reports distended bladder, bladder scan was obtain patient only holding 30 mL of urine at this time. Patient to continue on aspirin statin. We will follow up with echocardiogram. Patient informed of Echocardiogram findings with moderate aortic stenosis. Daughter at bedside states they see Dr. Rogel outpatient and are monitoring her aortic stenosis. No planned intervention at this time. Patient advised to continue care with PCP for UTI and repeat UA. Follow up with cardio and PCP outpatient. The patient was treated for the following problems: CHRONIC PROBLEMS: continue previous management per PCP unless otherwise indicated DISCHARGE MEDICATIONS: As listed below Pt hemodynamically stable and afebrile at time of discharge. PCP notified of patients admission, hospital course and discharge. New Medications: Sulfamethoxazole/Trimethoprim (Bactrim 400-80 mg Tablet) 400 Mg-80 Mg Tablet 1 TAB PO BID for 5 Days, #10 TAB 0 Refills Continued Medications: Cholecalciferol (Vitamin D3) (Vitamin D3) 50 Mcg Capsule 50 MCG PO DAILY, CAP Citalopram Hydrobromide (Citalopram HBr) 10 Mg Tablet 1 TAB PO DAILY for 30 Days, #30 TAB 0 Refills Cyanocobalamin (Vitamin B-12) (Vitamin B-12) 1,000 Mcg Tablet 1000 MCG PO DAILY, TAB Donepezil HCl (Donepezil HCl) 10 Mg Tab.rapdis 1 TAB PO DAILY for 30 Days, #30 TAB 0 Refills Famotidine (Famotidine) 40 Mg Tablet 40 MG PO DAILY, TAB Glipizide (Glipizide ER) 10 Mg Tab.er.24 1 TAB PO DAILY for 30 Days, #30 TAB 0 Refills Insulin Degludec (Tresiba Flextouch U-100) 100 Unit/1 Ml Insuln.pen 42 UNIT SQ DAILY, SYRINGE Losartan Potassium (Losartan Potassium) 100 Mg Tablet 100 MG PO DAILY, TAB Mirtazapine (Mirtazapine) 7.5 Mg Tablet 1 TAB PO HS for 30 Days, #30 TAB 0 Refills Multivit-Minerals/Folic Acid (Centrum Adults Multigummy) 12 Mcg Tab.chew 12 MCG PO DAILY, TAB.CHEW Pravastatin Sodium (Pravastatin Sodium) 40 Mg Tablet 40 MG PO HS, TAB PHYSICAL EXAM: GENERAL: alert, weak, awake oriented x 3 HEENT: EOMI, Sclera non icteric, moist mucosa NECK: Supple, no JVD, trachea midline LUNGS: Clear breath sounds bilaterally. No wheezes HEART: Regular rate and rhythm. Normal S1 and S2, with murmurs on left 3rd-4th ICS, mid-axillary and below the left nipple line ABD: Abdomen soft, nontender. Bowel sounds present EXT: No clubbing cyanosis or edema NEURO: Alert and oriented to person, follows commands FOLLOW-UP: Follow-up with PCP in 2-3 days for reevaluation and repeat UA. Keep appointments with cardiology outpatient for further recommendation of aortic stenosis. RECOMMENDATIONS: See Discharge Instructions This case was seen and discussed with my supervising physician. More than 30 minutes spent on discharge process, including evaluation of the patient, discussion with nursing staff, medication reconciliation and follow-up appointments ZAC ENG Jan 02, 2025 19:11
--- NOTE | 2025-01-02 20:54 | NUR ---
DISCHARGE NOTE PATIENT DISCHARGED AT 1999, TRACTOR CRANE ENGINEER WHEELED DOWN PATIENT TO PERSONAL VEHICLE WITH DAUGHTER. IV REMOVED, TELE REMOVED PRIOR. PATIENT ALERT, ORIENTED, AND ABLE TO MAKE NEEDS KNOWN AT TIME OF DISCHARGE. PATIENT GIVEN DISCHARGE EDUCATION.
== END 2025-01-02 20:02 | disposition home or self-care (01) ==
LOC: EDH 16:54 → UNDOADMOB 16:55 → EDHIP 16:55 → 4CH 23:33 → EDHIP 23:33
PROVIDERS: ADMIT Internal Medicine; ATTEND Internal Medicine
DX: N30.00 Acute cystitis without hematuria (principal); I35.0 Nonrheumatic aortic (valve) stenosis; N17.9 Acute kidney failure, unspecified; I12.9 Hypertensive chronic kidney disease with stage 1 through stage 4 chronic kidney disease, or unspecified chronic kidney disease; E11.22 Type 2 diabetes mellitus with diabetic chronic kidney disease; N18.30 Chronic kidney disease, stage 3 unspecified; E83.42 Hypomagnesemia; R20.0 Anesthesia of skin; F03.90 Unspecified dementia, unspecified severity, without behavioral disturbance, psychotic disturbance, mood disturbance, and anxiety; E11.65 Type 2 diabetes mellitus with hyperglycemia; E11.51 Type 2 diabetes mellitus with diabetic peripheral angiopathy without gangrene; I73.9 Peripheral vascular disease, unspecified; R42 Dizziness and giddiness; R07.81 Pleurodynia; E78.5 Hyperlipidemia, unspecified; E86.0 Dehydration; B96.1 Klebsiella pneumoniae [K. pneumoniae] as the cause of diseases classified elsewhere; Z79.899 Other long term (current) drug therapy
CPT/HCPCS: 96361 ×3; 96365; 96375 ×2; 99285; 82550; 83735 ×3; 84484; 80048 ×3; 83880; 85025 ×2; 87086 ×2; 87186; 82948 ×10; 82010; 81001; 36415 ×2; 71045; 71100; 70450; 76770; 93005; 96372 ×2; 96366 ×2; 83036; 84443; 80051; 84100; 80061; 93306; 93356; 76376; 93880; 97161; 97116; G0378 ×48; J3475; J1815 ×6; J0696 ×2; J1650 ×2; J0360